=== PATIENT | female | born 1970 | race Caucasian/White ===

== ENCOUNTER 2024-02-12 07:47 | Emergency (ER) | payer SELFPAY | END 2024-02-12 08:14 | disposition home or self-care (01) | LOC: ERS 07:47 | DX: R05.1 Acute cough (principal); I10 Essential (primary) hypertension; E11.9 Type 2 diabetes mellitus without complications; J44.89 Other specified chronic obstructive pulmonary disease; Z87.891 Personal history of nicotine dependence | CPT/HCPCS: 99282 ==